=== PATIENT | male | born 1960 | race Caucasian/White ===

== ENCOUNTER → 2017-01-14 | Outpatient (CLI) | payer BC ==
[~2017-01-14] MED LIST: GLUCOPHAGE1000 MG PO; GLUCOTROL XL10 MG PO; LANTUS100 U/ML SC; ZESTRIL40 MG PO
[2017-01-14 11:31] LABS: BASO # 0.1 (0.0-0.2); EOS # 0.1 (0.0-0.7); GRAN # 2.9 (1.4-6.5); GRAN % 41.4 % (42.2-75.2); HEMATOCRIT 44.9 % (42.0-52.0); HEMOGLOBIN 14.7 g/dl (13.5-18.0); LYMPH # 3.4 (1.2-3.4); LYMPH % 47.9 % (20.0-51.0); MEAN CELL VOLUME 81 fl (80.0-100.0); MEAN CORPUSCULAR HEMOGLOBIN 27 pg (27.0-31.0); MEAN CORPUSCULAR HGB CONC 33 g/dl (33.0-37.0); MEAN PLATELET VOLUME 9.7 fl (7.4-10.4); MONO # 0.5 (0.1-0.6); MONO % 7.4 % (1.7-9.3); PLATELET COUNT 197 K/mm3 (130-400); RED BLOOD COUNT 5.52 M/mm3 (4.20-5.60); REDCELL DISTRIBUTION WIDTH-CV 13.4 % (11.5-14.5)
[2017-01-14 11:55] LABS: ADJUSTED CALCIUM 9.7 mg/dL (8.4-10.2); ALANINE AMINOTRANSFERASE 37 U/L (21-72); ALBUMIN 4.1 gm/dL (3.5-5.0); ALKALINE PHOSPHATASE 69 U/L (50-136); ANION GAP 12 mmol/L (7-16); BILIRUBIN,TOTAL 0.9 mg/dL (0.0-1.0); BLOOD UREA NITROGEN 37 mg/dL (9-20); CALCIUM 9.8 mg/dL (8.4-10.2); CARBON DIOXIDE 26 mmol/L (22-30); CHLORIDE 100 mmol/L (98-107); GLUCOSE 134 mg/dL (74-106); POTASSIUM 4.6 mmol/L (3.4-5.0); SODIUM 139 mmol/L (137-145); TOTAL PROTEIN 7.5 gm/dL (6.4-8.2)
[2017-01-14 12:06] LABS: B-TYPE NATRIURETIC PEPTIDE 33 pg/mL (0-125)
[2017-01-14 12:17] LABS: TROPONIN-I < 0.012 ng/mL (0.000-0.034)
== END ==
LOC: COL.RAD 10:04
PROVIDERS: Internal Medicine
DX: R06.02 Shortness of breath (principal)

== ENCOUNTER 2021-11-17 13:02 | Outpatient (CLI) | payer SELFPAY ==
[~2021-11-17] VITALS: Ht 180.3 cm; Wt 98.0 kg
[2021-11-17] VITALS (8 sets, daily range): BP systolic 109–159; BP diastolic 54–100; PULSE 77–101; TEMP 98.6
[2021-11-17] MEDS ORDERED: ELIQUIS 5MG PO (14:25)
[2021-11-17] MEDS ORDERED: ZESTRIL40 MG PO (14:26)
[2021-11-17] MEDS ORDERED: GLUCOPHAGE1000 MG PO (14:26)
[2021-11-17] MEDS ORDERED: GLUCOTROL10 MG PO (14:26)
[2021-11-17] MEDS ORDERED: PROMACTA25 MG PO (14:27)
[2021-11-17] MEDS ORDERED: LANTUS100 U/ML SQ (14:28)
--- NOTE | 2021-11-17 15:30 | NUR ---
Pt tolerated infusion and 1 hr observation without issue. INT DC'd with catheter intact. Pt escorted out to ED entrance with steady gait.
== END 2021-11-17 15:30 | disposition home or self-care (01) ==
LOC: EUO 13:02
DX: U07.1 COVID-19 (principal); E66.9 Obesity, unspecified; E11.9 Type 2 diabetes mellitus without complications
CPT/HCPCS: M0245